=== PATIENT | male | born 1960 | race Caucasian/White ===

== ENCOUNTER 2018-06-19 12:42 | Emergency (ER) | payer SELFPAY ==
[2018-06-19] MEDS ORDERED: PANTOPRAZOLE 40 MG INJ ONE (13:25)
[2018-06-19] MEDS ORDERED: NA CHLORIDE 0.9% 2,000 ML ONE (13:25)
[2018-06-19] MEDS ORDERED: PANTOPRAZOLE INJ 80 MG in NA CHLORIDE 0.9% 250 ML IV ONE (13:45)
[2018-06-19 13:46] LABS: Absolute Lymphocytes (CBC) 1.5 K/uL (0.7-4.9); Absolute Monocytes 0.7 K/uL (0.1-1.3); Absolute Neutrophil 14.4 K/uL (1.8-8.0); Basophils % 0.6 % (0-1.3); Eosinophils % 1.7 % (0-4.4); Hematocrit 27.1 % (39.6-49.0); Lymphocytes % 8.7 % (15.3-44.8); MCV 56.9 fL (80-100); MPV 8.9 fL (7.6-11.3); Monocytes % 4.2 % (3.3-12.3); RBC Red Blood Cell Count 4.77 M/uL (4.33-5.43)
[2018-06-19 13:47] LABS: Protime INR 1.35
--- NOTE | 2018-06-19 13:47 | EDPHYS ---
Physician Documentation [facility] Name: Tre Chi Age: 57 yrs Sex: Male : 1960 Arrival Date: 06/19/2018 Time: 12:47 Bed 7 Private MD: Joamr Perez H ED Physician Jordon Diaz HPI: 06/19 13:26 This 57 yrs old Male presents to ER via Wheelchair with complaints of Bloody parvin Stools, Anemia. 13:26 The patient presents to the emergency department with rectal bleeding, a large amount. parvin Onset: The symptoms/episode began/occurred 3 day(s) ago. Abdominal pain: none is appreciated. Modifying factors: The symptoms are alleviated by remaining still, the symptoms are aggravated by movement. BLACK STOOLS, WEAK AND HYPOTENSIVE. Associated signs and symptoms: Pertinent positives: dizziness at rest, shortness of breath, near-syncope. Severity of symptoms: At their worst the symptoms were moderate in the emergency department the symptoms are unchanged. Historical: - Allergies: 12:57 No Known Allergies; aj1 - Home Meds: 12:57 Clozaril oral oral [Active]; Benicar oral oral [Active]; aj1 - PMHx: 12:57 Hypertension; aj1 - PSHx: 12:57 Cholecystectomy; aj1 - Immunization history:: Flu vaccine is up to date. - Social history:: Smoking status: Patient/guardian denies using tobacco. - Ebola Screening: : Patient denies travel to an Ebola-affected area in the 21 days before illness onset. ROS: 13:26 Eyes: Negative for injury, pain, redness, and discharge, Neck: Negative for injury, parvin pain, and swelling, Cardiovascular: Negative for chest pain, palpitations, and edema, Respiratory: Negative for shortness of breath, cough, wheezing, and pleuritic chest pain, Back: Negative for injury and pain, : Negative for injury, bleeding, discharge, and swelling, MS/Extremity: Negative for injury and deformity, Neuro: Negative for headache, weakness, numbness, tingling, and seizure. 13:26 Constitutional: Positive for malaise. 13:26 ENT: Positive for weak, pale, hypotensive. 13:26 Neck: Negative for 13:26 Cardiovascular: Positive for palpitations. 13:26 Respiratory: Positive for cough, shortness of breath. 13:26 Abdomen/GI: Positive for abdominal distension. 13:26 Skin: Positive for pallor. Exam: 13:26 Constitutional: This is a well developed, well nourished patient who is awake, alert, parvin and in no acute distress. Head/Face: Normocephalic, atraumatic. Neck: Trachea midline, no thyromegaly or masses palpated, and no cervical lymphadenopathy. Supple, full range of motion without nuchal rigidity, or vertebral point tenderness. No Meningismus. Chest/axilla: Normal chest wall appearance and motion. Nontender with no deformity. No lesions are appreciated. Respiratory: Lungs have equal breath sounds bilaterally, clear to auscultation and percussion. No rales, rhonchi or wheezes noted. No increased work of breathing, no retractions or nasal flaring. Back: No spinal tenderness. No costovertebral tenderness. Full range of motion. Male : Normal genitalia with no discharge or lesions. MS/ Extremity: Pulses equal, no cyanosis. Neurovascular intact. Full, normal range of motion. Neuro: Awake and alert, GCS 15, oriented to person, place, time, and situation. Cranial nerves II-XII grossly intact. Motor strength 5/5 in all extremities. Sensory grossly intact. Cerebellar exam normal. Normal gait. Psych: Awake, alert, with orientation to person, place and time. Behavior, mood, and affect are within normal limits. 13:26 Eyes: Conjunctiva: pale. 13:26 Cardiovascular: Rate: tachycardic, Rhythm: regular, Pulses: Pulses are 3+ in . JVD: is not appreciated. 13:26 Abdomen/GI: Inspection: distension, Bowel sounds: normal, Palpation: abdomen is soft and non-tender, Liver: no appreciated palpable abnormalities, Hernia: not appreciated. Vital Signs: 12:57 BP 74 / 45; Pulse 106; Resp 24; Pulse Ox 95% on R/A; Weight 90.72 kg (R); aj1 13:30 BP 77 / 61; Pulse 95; Resp 22; Pulse Ox 94% on 4 lpm NC; ph 14:00 BP 90 / 66; Pulse 94; Resp 20; Pulse Ox 94% on 4 lpm NC; ph 14:45 BP 106 / 75; Pulse 95; Resp 22; Pulse Ox 94% on 4 lpm NC; ph 15:00 BP 111 / 69; Pulse 85; Resp 20; Pulse Ox 94% on 4 lpm NC; ph 15:30 BP 100 / 73; Pulse 95; Resp 22; Temp 97.8; Pulse Ox 95% on 4 lpm NC; ph 15:54 BP 113 / 80; Pulse 97; Resp 24; Pulse Ox 93% on 4 lpm NC; ph 16:30 BP 100 / 66; Pulse 93; Resp 30; Pulse Ox 93% on 4 lpm NC; jl7 17:00 BP 108 / 68; Pulse 106; Resp 32; Pulse Ox 93% on 4 lpm NC; jl7 17:30 BP 103 / 65; Pulse 108; Resp 32; Pulse Ox 90% on 4 lpm NC; jl7 18:35 BP 106 / 69; Pulse 102; Resp 32; Pulse Ox 91% on 4 lpm NC; jl7 19:00 BP 94 / 61; Pulse 112; Resp 30; Pulse Ox 92% on 4 lpm NC; jl7 19:45 BP 95 / 66; Pulse 108; Resp 33; Temp 98.3(O); Pulse Ox 92% on 4 lpm NC; tl2 20:10 BP 97 / 74; Pulse 109; Resp 26; Temp 98.3(O); Pulse Ox 94% on 4 lpm NC; tl2 Procedures: 13:43 Peripheral line: by aseptic technique a peripheral line was placed in the left external parvin jugular vein. 19:03 Performed ng tube to low int suction by parvin haynes. [facility] MDM: 13:[address] [facility] 13:32 Data reviewed: vital signs, nurses notes, lab test result(s), EKG, radiologic studies, [facility] plain films. 06/19 13:26 Order name: Basic Metabolic Panel; Complete Time: 14:[address] [facility] 06/19 13:26 Order name: CBC with Diff; Complete Time: 14:[address] [facility] 06/19 13:26 Order name: Ckmb; Complete Time: 14:[address] [facility] 06/19 13:26 Order name: CPK; Complete Time: 14:[address] [facility] 06/19 13:26 Order name: LFT's; Complete Time: 14:[address] [facility] 06/19 13:26 Order name: Magnesium; Complete Time: 14:[address] [facility] 06/19 13:26 Order name: NT PRO-BNP; Complete Time: 14:[address] [facility] 06/19 13:26 Order name: PT-INR; Complete Time: 14:[address] [facility] 06/19 13:26 Order name: Ptt, Activated; Complete Time: 14:[address] [facility] 06/19 13:26 Order name: Troponin (emerg Dept Use Only); Complete Time: 14:[address] [facility] 06/19 13:26 Order name: Lipase; Complete Time: 14:[address] [facility] 06/19 13:30 Order name: Bb Add On eb 06/19 13:39 Order name: Type and Screen EDMS 06/19 13:39 Order name: Fresh Frozen Plasma EDMS 06/19 13:39 Order name: Packed RBC Leukored -1 EDMS 06/19 14:08 Order name: Manual Differential; Complete Time: 14:57 EDID 06/19 14:08 Order name: Slides for Pathologist Review EDID 06/19 14:17 Order name: ABO/RH no charge; Complete Time: 14:57 EDID 06/19 14:28 Order name: CBC with Automated Diff EDMS 06/19 14:28 Order name: CBC with Automated Diff EDMS 06/19 14:28 Order name: CBC with Automated Diff EDMS 06/19 14:28 Order name: CBC with Automated Diff EDMS 06/19 14:28 Order name: CBC with Automated Diff EDMS 06/19 14:28 Order name: CBC with Automated Diff EDMS 06/19 14:28 Order name: Comprehensive Metabolic Panel EDMS 06/19 14:28 Order name: Comprehensive Metabolic Panel EDMS 06/19 14:28 Order name: Comprehensive Metabolic Panel EDMS 06/19 14:28 Order name: Comprehensive Metabolic Panel EDMS 06/19 14:28 Order name: Comprehensive Metabolic Panel EDMS 06/19 14:28 Order name: Comprehensive Metabolic Panel EDMS 06/19 13:26 Order name: XRAY Chest (1 view); Complete Time: 14:[address] [facility] 06/19 14:28 Order name: Echo with Doppler EDMS 06/19 14:28 Order name: Lipid Profile EDMS 06/19 14:28 Order name: Lipid Profile EDMS 06/19 14:28 Order name: Magnesium EDMS 06/19 14:28 Order name: Magnesium EDMS 06/19 14:28 Order name: Magnesium EDMS 06/19 14:28 Order name: Magnesium EDMS 06/19 14:28 Order name: Magnesium EDMS 06/19 14:28 Order name: Magnesium EDMS 06/19 14:28 Order name: T4 Free [facility] 06/19 14:28 Order name: T4 Free [facility] 06/19 14:28 Order name: Thyroid Stimulating Hormone [facility] 06/19 14:28 Order name: Thyroid Stimulating Hormone [facility] 06/19 14:28 Order name: Blood Culture [facility] 06/19 14:28 Order name: Renal Ultrasound-Complete; Complete Time: 16:02 [facility] 06/19 15:05 Order name: CT Stone Protocol [facility] 06/19 15:41 Order name: Iron Level 06/19 15:41 Order name: Folic Acid,Serum (folate) 06/19 15:41 Order name: B12 06/19 15:57 Order name: CT; Complete Time: 16:02 [facility] 06/19 16:29 Order name: CBC with Automated Diff; Complete Time: 17:18 [facility] 06/19 16:37 Order name: Transferrin Sat/Iron Binding; Complete Time: 17:18 [facility] 06/19 17:14 Order name: Ferritin; Complete Time: 17:18 [facility] 06/19 17:14 Order name: Folic Acid, (Folate); Complete Time: 17:18 [facility] 06/19 17:14 Order name: Vitamin B12 Level; Complete Time: 17:18 [facility] 06/19 19:02 Order name: Abdomen [address] [facility] 06/19 19:47 Order name: RAD [facility] 06/19 20:09 Order name: Urine Dipstick--Ancillary (enter results) [place] 06/19 13:26 Order name: EKG; Complete Time: 13:[address] [facility] 06/19 13:26 Order name: Cardiac monitoring; Complete Time: 14:[address] [facility] 06/19 13:26 Order name: EKG - Nurse/Tech; Complete Time: 14:[address] [facility] 06/19 13:26 Order name: IV Saline Lock; Complete Time: 14:[address] [facility] 06/19 13:26 Order name: Labs collected and sent; Complete Time: 14:[address] [facility] 06/19 13:26 Order name: O2 Per Protocol; Complete Time: 14:[address] [facility] 06/19 13:26 Order name: O2 Sat Monitoring; Complete Time: 14:[address] [facility] 06/19 13:26 Order name: Urine Dipstick-Ancillary (obtain specimen); Complete Time: 19:[address] [facility] 06/19 13:26 Order name: Hartley; Complete Time: 16:[address] [facility] 06/19 13:26 Order name: IV Saline Lock - Large Bore; Complete Time: 13:[address] [facility] 06/19 13:26 Order name: Transfuse; Complete Time: 19:[address] [facility] 06/19 13:32 Order name: Central Line Kit; Complete Time: 13:[address] [facility] 06/19 13:44 Order name: NPO; Complete Time: 13:[address] [facility] 06/19 13:50 Order name: CONS Physician Consult [facility] 06/19 14:28 Order name: CONS Physician Consult [facility] 06/19 14:28 Order name: NPO [facility] 06/19 16:07 Order name: NG Tube: low intermittant suction; Complete Time: 19:[address] [facility] Administered Medications: 13:27 Drug: NS 0.9% 1000 ml Route: IV; Rate: 1 bolus; Site: right antecubital; iw 14:30 Follow up: IV Status: Completed infusion; IV Intake: 1000ml jl7 13:27 Drug: ProTONIX 80 mg Route: IVP; Site: right antecubital; iw 14:00 Follow up: Response: No adverse reaction jl7 13:50 Drug: NS 0.9% 1000 ml Route: IV; Rate: 1 bolus; Site: right antecubital; jl7 15:00 Follow up: IV Status: Completed infusion jl7 13:52 Drug: ProTONIX 8 mg/hr Route: IV; Rate: 25 ml/hr; Site: right antecubital; jl7 14:12 Drug: Vitamin K1 10 mg Route: Sub-Q; Site: abdomen; jl7 15:00 Follow up: Response: No adverse reaction jl7 15:20 Drug: NS 0.9% 1000 ml Route: IV; Rate: 1000 ml; Site: left antecubital; ph 16:20 Follow up: IV Status: Completed infusion jl7 18:10 Drug: Flagyl 500 mg Volume: 100 ml; Route: IVPB; Rate: 200 ml/hr; Infused Over: 30 jl7 mins; Site: left jugular; 18:40 Follow up: Response: No adverse reaction; IV Status: Completed infusion jl7 18:55 Drug: Rocephin - (cefTRIAXone) 1 grams Route: IVPB; Infused Over: 30 mins; Site: left jl7 jugular; 18:57 Follow up: Response: No adverse reaction; IV Status: Completed infusion jl7 19:41 Drug: NS 0.9% 500 ml Route: IV; Rate: bolus; Site: left jugular; iw Disposition: 06/19/18 16:20 Transfer ordered to [facility]. Diagnosis are Other intestinal obstruction - mechanical obs, cecal mass, Anemia, unspecified, Unspecified kidney failure, Hypotension, Elevated white blood cell count. - Reason for transfer: Higher level of care. - Accepting physician is to [facility]. - Condition is Fair. - Problem is new. - Symptoms have improved. Signatures: Dispatcher [employer] EDMS Lou Farris, RN RN aj1 Jordon Diaz MD MD cha Williams, Irene RN RN iw Abena Grubbs RN RN Taylor Lobato RN RN tl2 Hermann Lockett RN RN jl7 Patricia Coronel Corrections: (The following items were deleted from the chart) 14:50 13:47 Hospitalization Ordered by MD [employer] for Inpatient Admission. Preliminary eb diagnosis is Gastrointestinal hemorrhage, unspecified - upper; Hypotension; Weakness. Bed requested for Intensive Care Unit. Status is Inpatient Admission. Condition is Serious. Problem is new. Symptoms have improved. UTI on Admission? No. [facility] 14:56 14:50 06/19/2018 13:47 Hospitalization Ordered by [employer] [employer] for Inpatient eb Admission. Preliminary diagnosis is Gastrointestinal hemorrhage, unspecified - upper; Hypotension; Weakness. Bed requested for Intensive Care Unit. Status is Inpatient Admission. Condition is Serious. Problem is new. Symptoms have improved. UTI on Admission? No. 14:59 14:56 06/19/2018 13:47 Hospitalization Ordered by [employer] for Inpatient parvin Admission. Preliminary diagnosis is Gastrointestinal hemorrhage, unspecified - upper; Hypotension; Weakness. Bed requested for Intensive Care Unit. Status is Inpatient Admission. Condition is Serious. Problem is new. Symptoms have improved. UTI on Admission? No. eb 16:16 14:59 06/19/2018 13:47 Hospitalization Ordered by [employer] for Inpatient parvin Admission. Preliminary diagnosis is Gastrointestinal hemorrhage, unspecified - upper; Hypotension; Weakness; Unspecified kidney failure. Bed requested for Intensive Care Unit. Status is Inpatient Admission. Condition is Serious. Problem is new. Symptoms have improved. UTI on Admission? No. parvin 20:22 16:20 06/19/2018 16:20 Transfer ordered to [facility]. Diagnosis is tl2 Other intestinal obstruction - mechanical obs, cecal mass; Anemia, unspecified; Unspecified kidney failure; Hypotension; Elevated white blood cell count. Reason for transfer: Higher level of care. Accepting physician is to [facility]. Condition is Fair. Problem is new. Symptoms have improved. parvin
--- NOTE | 2018-06-19 13:47 | ER ---
Nurse's Notes [facility] Emergency Department Name: Tre Chi Age: 57 yrs Sex: Male : 1960 Arrival Date: 06/19/2018 Time: 12:47 Bed 7 Private MD: Jomar Perez H Diagnosis: Other intestinal obstruction-mechanical obs, cecal mass;Anemia, unspecified;Unspecified kidney failure;Hypotension;Elevated white blood cell count Presentation: 06/19 12:52 Presenting complaint: Father states: He has a GI bleed, he saw his doctor and they guilherme aj1 blood, they said that his hemoglobin was down to 7. He is suppose to see Dr. Smith once he gets admitted. Patient appears pale, diaphoretic. Reports abdomina pain, dark stools. Transition of care: patient was not received from another setting of care. Onset of symptoms was April 2018. Risk Assessment: Do you want to hurt yourself or someone else? Patient reports no desire to harm self or others. Initial Sepsis Screen: Does the patient meet any 2 criteria? Systolic BP < 90 mmHg. Does the patient have a suspected source of infection? No. Patient's initial sepsis screen is negative. Care prior to arrival: None. 12:52 Method Of Arrival: Wheelchair aj1 12:52 Acuity: BERTA 2 aj1 Triage Assessment: 12:57 General: Appears uncomfortable, Behavior is calm, cooperative, appropriate for age. aj1 Pain: Complains of pain in abdomen. Historical: - Allergies: 12:57 No Known Allergies; aj1 - Home Meds: 12:57 Clozaril oral oral [Active]; Benicar oral oral [Active]; aj1 - PMHx: 12:57 Hypertension; aj1 - PSHx: 12:57 Cholecystectomy; aj1 - Immunization history:: Flu vaccine is up to date. - Social history:: Smoking status: Patient/guardian denies using tobacco. - Ebola Screening: : Patient denies travel to an Ebola-affected area in the 21 days before illness onset. Screenin:00 Abuse screen: Denies threats or abuse. Denies injuries from another. Nutritional jl7 screening: No deficits noted. Tuberculosis screening: No symptoms or risk factors identified. Fall Risk No secondary diagnosis (0 pts). IV access (20 points). Gait- Weak (10 pts.). Total Freitas Fall Scale indicates Low Risk Score (25-44 pts). Fall prevention measures have been instituted. Side Rails Up X 2 Placed close to Nursing Station Frequent Obs/Assesments occuring Family Present and informed to notify staff if they need to leave bedside As available Patient and Family Educated on Fall Prevention Program and strategies. Assessment: 13:00 General: Appears distressed, uncomfortable, Behavior is calm, cooperative, appropriate jl7 for age. Pain: Complains of pain in epigastric area Pain does not radiate. Pain currently is 4 out of 10 on a pain scale. Quality of pain is described as dull. Neuro: Level of Consciousness is awake, alert, obeys commands, Oriented to person, place, time, situation. Cardiovascular: Heart tones present Capillary refill is > 3 seconds in bilateral fingers toes. Respiratory: Airway is patent Respiratory effort is even, labored, Respiratory pattern is symmetrical, tachypnea Breath sounds are clear bilaterally. GI: Abdomen is round distended, Bowel sounds hypoactive in right upper quadrant, left upper quadrant, right lower quadrant and left lower quadrant. : No signs and/or symptoms were reported regarding the genitourinary system. EENT: No signs and/or symptoms were reported regarding the EENT system. Derm: Skin is diaphoretic, Skin is pale, Skin temperature is cold. 14:00 Reassessment: No changes from previously documented assessment. Patient and/or family jl7 updated on plan of care and expected duration. Pain level reassessed. Patient is alert, oriented x 3, equal unlabored respirations, skin warm/dry/pink. 15:00 Reassessment: Patient and/or family updated on plan of care and expected duration. Pain jl7 level reassessed. Patient is alert, oriented x 3, equal unlabored respirations, skin warm/dry/pink. 16:00 Reassessment: Patient and/or family updated on plan of care and expected duration. Pain jl7 level reassessed. Patient is alert, oriented x 3, equal unlabored respirations, skin warm/dry/pink. 17:00 Reassessment: Patient and/or family updated on plan of care and expected duration. Pain jl7 level reassessed. Patient is alert, oriented x 3, equal unlabored respirations, skin warm/dry/pink. 18:00 Reassessment: Patient and/or family updated on plan of care and expected duration. Pain jl7 level reassessed. Patient is alert, oriented x 3, equal unlabored respirations, skin warm/dry/pink. 19:10 General: Appears in no apparent distress. uncomfortable, Behavior is calm, cooperative, tl2 appropriate for age. Pain: Complains of pain in epigastric area Pain does not radiate. Neuro: Level of Consciousness is awake, alert, obeys commands, Oriented to person, place, time, situation. Cardiovascular: Denies chest pain. Respiratory: Airway is patent Respiratory effort is even, labored, Respiratory pattern is symmetrical, tachypnea Breath sounds are clear bilaterally. GI: Abdomen is round distended. GI: Reports bloody stool. : No signs and/or symptoms were reported regarding the genitourinary system. Derm: Skin is diaphoretic, Skin is pale. 19:45 Reassessment: Patient and/or family updated on plan of care and expected duration. Pain tl2 level reassessed. Patient is alert, oriented x 3, equal unlabored respirations, skin warm/dry/pink. See transfusion record for vitals. Awaiting transport for transfer. Vital Signs: 12:57 BP 74 / 45; Pulse 106; Resp 24; Pulse Ox 95% on R/A; Weight 90.72 kg (R); aj1 13:30 BP 77 / 61; Pulse 95; Resp 22; Pulse Ox 94% on 4 lpm NC; ph 14:00 BP 90 / 66; Pulse 94; Resp 20; Pulse Ox 94% on 4 lpm NC; ph 14:45 BP 106 / 75; Pulse 95; Resp 22; Pulse Ox 94% on 4 lpm NC; ph 15:00 BP 111 / 69; Pulse 85; Resp 20; Pulse Ox 94% on 4 lpm NC; ph 15:30 BP 100 / 73; Pulse 95; Resp 22; Temp 97.8; Pulse Ox 95% on 4 lpm NC; ph 15:54 BP 113 / 80; Pulse 97; Resp 24; Pulse Ox 93% on 4 lpm NC; ph 16:30 BP 100 / 66; Pulse 93; Resp 30; Pulse Ox 93% on 4 lpm NC; jl7 17:00 BP 108 / 68; Pulse 106; Resp 32; Pulse Ox 93% on 4 lpm NC; jl7 17:30 BP 103 / 65; Pulse 108; Resp 32; Pulse Ox 90% on 4 lpm NC; jl7 18:35 BP 106 / 69; Pulse 102; Resp 32; Pulse Ox 91% on 4 lpm NC; jl7 19:00 BP 94 / 61; Pulse 112; Resp 30; Pulse Ox 92% on 4 lpm NC; jl7 19:45 BP 95 / 66; Pulse 108; Resp 33; Temp 98.3(O); Pulse Ox 92% on 4 lpm NC; tl2 20:10 BP 97 / 74; Pulse 109; Resp 26; Temp 98.3(O); Pulse Ox 94% on 4 lpm NC; tl2 ED Course: 12:47 Patient arrived in ED. as 12:47 Jomar Perez MD is Private Physician. as 12:55 Triage completed. aj1 12:57 Arm band placed on Patient placed in an exam room. aj1 13:00 Patient has correct armband on for positive identification. Placed in gown. Bed in low jl7 position. Call light in reach. Side rails up X2. monitoring and evaluation advisor on. Pulse ox on. NIBP on. Warm blanket given. 13:05 Hermann Lockett, THIERRY is Primary Nurse. jl7 13:05 Initial lab(s) drawn, by ms, sent to lab. Inserted saline lock: 20 gauge in right jl7 antecubital area, using aseptic technique. Blood collected. 13:10 Jordon Diaz MD is Attending Physician. [facility] 13:10 Inserted saline lock: 20 gauge in left forearm, using aseptic technique. Inserted jl7 saline lock: 18 gauge in left EJ, using aseptic technique. ,using aseptic technique. Inserted by Dr. Diaz. 13:40 EKG done, by farm technician. reviewed by Jordon Diaz MD. at1 13:45 Hartley cath inserted, using sterile technique, 16 Fr., by ms, balloon inflated, to jl7 gravity drainage, urine specimen collected. returned clear yellow urine. Patient tolerated well. 13:46 Maninder Chaves DO is Hospitalizing Provider. [facility] 14:00 X-ray completed. Portable x-ray completed in exam room. Patient tolerated procedure jb2 well. 14:01 XRAY Chest (1 view) In Process Unspecified. EDMS 15:12 Ultrasound completed. Note: us done portable/bedside in er. lc3 15:[address] mw3 15:40 CT completed. Patient tolerated procedure well. Patient moved back from PR. sj 16:[address] [facility]. eb 17:06 connected the doctor from [facility] with ED doctor for patient transfer eb consulation. 17:[address] Smith the surgical farmer diversified crops from [facility] with ED doctor. eb 17:44 administrative approval given by Kaykay Mittal RN channel marketing coordinator. Pt going to [address] A Bed 6A04. report to be called to [phone]. Dr. Koenig has accepted the patient. 19:00 Report given to THIERRY Vazquez. jl7 20:10 Patient transferred, IV remains in place. tl2 20:10 No provider procedures requiring assistance completed. tl2 Administered Medications: 13:27 Drug: NS 0.9% 1000 ml Route: IV; Rate: 1 bolus; Site: right antecubital; iw 14:30 Follow up: IV Status: Completed infusion; IV Intake: 1000ml jl7 13:27 Drug: ProTONIX 80 mg Route: IVP; Site: right antecubital; iw 14:00 Follow up: Response: No adverse reaction jl7 13:50 Drug: NS 0.9% 1000 ml Route: IV; Rate: 1 bolus; Site: right antecubital; jl7 15:00 Follow up: IV Status: Completed infusion jl7 13:52 Drug: ProTONIX 8 mg/hr Route: IV; Rate: 25 ml/hr; Site: right antecubital; jl7 14:12 Drug: Vitamin K1 10 mg Route: Sub-Q; Site: abdomen; jl7 15:00 Follow up: Response: No adverse reaction jl7 15:20 Drug: NS 0.9% 1000 ml Route: IV; Rate: 1000 ml; Site: left antecubital; ph 16:20 Follow up: IV Status: Completed infusion jl7 18:10 Drug: Flagyl 500 mg Volume: 100 ml; Route: IVPB; Rate: 200 ml/hr; Infused Over: 30 jl7 mins; Site: left jugular; 18:40 Follow up: Response: No adverse reaction; IV Status: Completed infusion jl7 18:55 Drug: Rocephin - (cefTRIAXone) 1 grams Route: IVPB; Infused Over: 30 mins; Site: left jl7 jugular; 18:57 Follow up: Response: No adverse reaction; IV Status: Completed infusion jl7 19:41 Drug: NS 0.9% 500 ml Route: IV; Rate: bolus; Site: left jugular; Intake: 14:30 IV: 1000ml; Total: 1000ml. jl7 Outcome: 13:47 Decision to Hospitalize by Provider. parvin 16:20 ER care complete, transfer ordered by . parvin 20:10 Transferred by ground EMS to [facility], Transfer form completed. tl2 20:10 critical 20:10 Discharge instructions given to patient, family, Instructed on the need for transfer. 20:22 Patient left the ED. tl2 Signatures: Dispatcher [employer] EDMS Lou Farris, RN RN aj1 Jordon Diaz MD MD cha Buechter, Yanira Pittman Amelia as Williams, Irene, THIERRY GUADARRAMA iw Toya newton, clinical program consultant EKG Tat1 Abena Grubbs RN RN Yesenia Clark Taylor, RN RN tl2 Hermann Lockett RN RN jl7 Patricia Coronel Michelle mw3 Corrections: (The following items were deleted from the chart) 06/20 05:36 05:33 No provider procedures requiring assistance completed. tl2 tl2
[2018-06-19 14:01] LABS: Albumin 3.4 g/dL (3.4-5.0); Bilirubin Direct 0.2 mg/dL (0-0.2); Bilirubin Total 0.9 mg/dL (0.2-1.0); CKMB Creatine Kinase MB 3.3 ng/mL (0.3-3.6); Magnesium 2.7 mg/dL (1.8-2.4); Potassium 3.9 mmol/L (3.5-5.1); Protein, Total 7.5 g/dL (6.4-8.2)
[2018-06-19] MEDS ORDERED: VITAMIN K (ADULT) 10 MG/ML ONE (14:03)
--- NOTE | 2018-06-19 14:10 | RAD REPORT ---
EXAM DESCRIPTION: RAD - Chest Single View - 06/19/2018 2:03 pm CLINICAL HISTORY: COUGH Chest pain. COMPARISON: No comparisons FINDINGS: Portable technique limits examination quality. The lungs are underinflated but grossly clear. The heart is normal in size. No displaced fractures. IMPRESSION: No acute intrathoracic process suspected.
[2018-06-19] MEDS ORDERED: ACETAMINOPHEN 650MG/RECT SUPP PR PRN (14:18)
[2018-06-19] MEDS ORDERED: LORazepam 2 MG/ML VIAL IV PRN (14:18)
[2018-06-19] MEDS ORDERED: ACETAMINOPHEN 500 MG TAB PO PRN (14:18)
[2018-06-19] MEDS ORDERED: ONDANSETRON 4 MG/2 ML VIAL IV PRN (14:18)
[2018-06-19 14:20] LABS: Anisocytosis 3+; Blood Morphology Comment NOTED (NOT SEEN); Hypochromasia 3+; Platelet Estimate INCR; Platelets, Giant MANY; Polychromasia 3+
[2018-06-19] MEDS ORDERED: NA CHLORIDE 0.9% 500 ML ONE ×2 (14:36→19:39)
--- NOTE | 2018-06-19 14:50 | P.HP ---
Certification for Inpatient Patient admitted to: Inpatient With expected LOS: >2 Midnights Patient will require the following post-hospital care: None Practitioner: I am a practitioner with admitting privileges, knowledge of patient current condition, hospital course, and medical plan of care. Services: Services provided to patient in accordance with Admission requirements found in Title 42 Section 412.3 of the Code of Federal Regulations Patient History Date of Service: 06/19/18 Primary Care Provider: Dr. Tucker([place], [place]) Reason for admission: Fatigue, Melena, Anemia History of Present Illness: 57 yo CM presented to the ER after he was seen by his PCP in [place]. He was having fatigue, melena for the last couple of days. In the Office of his PCP Lab showed a hemoglobin of 7.1, previous Hemoglobin last year was normal as per family. He also had a positive guaiac. Cardiac enzymes were normal. He mentions fatigue over that last couple of days. He has been taking his medication-Benicar HCT for his HTN. His BP was low. He also mentions that he takes Tylenol and Alleve daily. He has Schizophrenia and taking Clozaril. He was sent from the PCP to the GI physician for evaluation. His family decided to bring him in the ER. In the ER he was found to be anemic, hypotensive and with acute renal failure. His hemoglobin was 7.6 with microcytic indices. His Platelet count was 2370. Peripheral smear was sent for analysis. His BUN was 30, Creatinine 3.1 and GFR- 21. BNP was 4007. Cardiac enzymes were in normal range. His CXR was normal. He was has been given IV fluids and will start transfusion with Protonix drip. When I evaluated him, he appeared pale. His BP was 95 sys. He appears stable and in non respiratory distress. Family was at bedside. He reports taking his HTN medication-Benicar HCT this am. He does not drink alcohol or smoke. There is family history of colon and stomach cancer. Family mentions that his hemoglobin last year was normal. He only other medication is Clozaril for Schizophrenia. He is taking Tylenol and Alleve daily. Allergies No Known Allergies Allergy (Unverified 06/19/18 13:31) Home medications list reviewed: Yes - Past Medical/Surgical History Diabetic: No -: HTN -: Schizophrenia -: Cholecystectomy Psychosocial/ Personal History: He is . He has 1 child. He is not working. He is disabled. - Family History Father -: Cancer (Grandfather with Stomach and Colon cancer. ) Mother -: Cancer (Grandmother with Breast cancer) - Social History Smoking Status: Never smoker Alcohol use: No CD- Drugs: No Caffeine use: Yes Place of Residence: Home Review of Systems General: Weakness, Malaise, As per HPI Eyes: Unremarkable ENT: Unremarkable Respiratory: Unremarkable Cardiovascular: Unremarkable Gastrointestinal: Nausea, Melena, As per HPI Genitourinary: Unremarkable Musculoskeletal: Unremarkable Integumentary: Unremarkable Neurological: Weakness, As per HPI Lymphatics: Unremarkable Physical Examination - Physical Exam General: Alert, In no apparent distress, Oriented x3, Cooperative HEENT: Atraumatic, Normocephalic, PERRLA, Other (dry mucous membranes) Neck: Supple, No Thyromegaly Respiratory: Clear to auscultation bilaterally, Normal air movement Cardiovascular: Normal pulses, Regular rate/rhythm Gastrointestinal: Normal bowel sounds, Soft and benign, Non-distended, No masses , No rebound, No guarding, Tenderness (Minimal tenderness to the epigastric region) Musculoskeletal: No erythema, No tenderness, No warmth Integumentary: No erythema, No warmth, No cyanosis, Other (Pale appearing) Neurological: Normal speech, Normal strength at 5/5 x4 extr, Normal tone, Normal affect Lymphatics: No axilla or inguinal lymphadenopathy - Studies Laboratory Data (last 24 hrs) 06/19/18 13:27: PT 16.0 H, INR 1.35, APTT 31.4 06/19/18 13:27: WBC 16.9 H, Hgb 7.6 L*, Hct 27.1 L, Plt Count 2370 H* 06/19/18 13:27: Sodium 139, Potassium 3.9, BUN 30 H, Creatinine 3.10 H, Glucose 175 H, Magnesium 2.7 H, Total Bilirubin 0.9, AST 19, ALT 16, Alkaline Phosphatase 116, Lipase 81 Assessment and Plan - Problems (Diagnosis) (1) GI bleed Current Visit: Yes Status: Acute Plan: Likely Upper GI bleed from NSAIDS. Will provide aggressive IV hydration. Will transfuse 2 units of pRBCs then recheck H/H. Will start Protonix drip. Will start Rocephin IV. Obtain Blood cultures. GI consulted to further address. Will maintain BP above 90 sys. Will check Iron, B12 and Peripheral smear. Patient had positive guaiac at PCP office. Family history of Stomach and Colon cancer. Patient may require further transfusion. He will likely need GI evaluation once stable. Will discuss with GI. Qualifiers: GI bleed type/associated pathology: melena Qualified Code(s): K92.1 - Melena (2) Anemia Current Visit: Yes Status: Acute Plan: Likely from GI bleed. Noted melena. Will continue as above. Aggressive IV fluid hydration and transfusion of pRBCs. Qualifiers: Anemia type: other cause Other causes of anemia: acute posthemorrhagic Qualified Code(s): D62 - Acute posthemorrhagic anemia (3) Acute renal failure Current Visit: Yes Status: Acute Plan: Likely from Hypovolemia-GI Bleed and medication-Benicar HCT. Will hold Benicar HCT. Will consult Nephrology to further address. Will check Renal US. Will continue with aggressive IV fluids and transfusion of pRBCs. (4) Hypotension Current Visit: Yes Status: Acute Plan: Continue with aggressive IV fluids, transfusion of blood. Will monitor closely. Patient last took Benicar HCT this am. Qualifiers: Hypotension type: other hypotension type Qualified Code(s): I95.89 - Other hypotension (5) Elevated platelet count Current Visit: Yes Status: Acute Plan: Will check Peripheral smear. (6) Schizophrenia Current Visit: Yes Status: Chronic Plan: Will obtain and verify home meds. Will need to hold Clozaril due to SE of Hypotension at least until Hypotension has resolved Qualifiers: Schizophrenia type: unspecified Qualified Code(s): F20.9 - Schizophrenia, unspecified (7) HTN (hypertension) Current Visit: Yes Status: Chronic Plan: Will HOLD Benicar HCT. Will continue as above. Will maintain BP above 90 sy. Will check ECHO. Qualifiers: Hypertension type: essential hypertension Qualified Code(s): I10 - Essential (primary) hypertension Discharge Plan: Home Plan to discharge in: Greater than 2 days - Advance Directives Does patient have a Living Will: No Does patient have a Durable POA for Healthcare: No - Code Status/Comfort Care Code Status Assessed: Yes Time Spent Managing Pts Care (In Minutes): 65
[2018-06-19] MEDS ORDERED: NA CHLORIDE 0.9% 1,000 ML IV SCH (15:00)
[2018-06-19] MEDS ORDERED: NA CHLORIDE 0.9% 1,000 ML ONE (15:20)
--- NOTE | 2018-06-19 15:42 | RAD REPORT ---
EXAM DESCRIPTION: US - Renal Ultrasound-Complete - 06/19/2018 3:16 pm CLINICAL HISTORY: Acute renal failure COMPARISON: None FINDINGS: Both kidneys are normal in size, shape and echotexture. The right kidney measures 11.4 x 5.0 x 4.6 cm. No hydronephrosis, focal mass or perinephric fluid. The left kidney measures 13.1 x 5.7 x 4.3 cm. No hydronephrosis, focal mass or perinephric fluid. The urinary bladder is incompletely distended without gross abnormality seen. Mild ascites is noted. IMPRESSION: Unremarkable renal sonogram. Mild ascites.
--- NOTE | 2018-06-19 15:56 | RAD REPORT ---
EXAM DESCRIPTION: CT - Stone Protocol - 06/19/2018 3:42 pm CLINICAL HISTORY: Flank pain. ABD PAIN COMPARISON: No comparisons TECHNIQUE: Axial images were obtained without oral or IV contrast. Lack of contrast limits solid org an and vascular assessment. The [id number] spans the entirety of the system partially obscuring uppermost abdomen and lung bases. Coronal reformatted images were obtained and reviewed. All CT scans are performed using dose optimization technique as appropriate and may include automated exposure control or mA/KV adjustment according to patient size. FINDINGS: Mild linear subsegmental atelectasis is seen in both lung bases posteriorly. Imaged portions of the liver and spleen show no suspicious findings on non-contrast imaging.Cholecyst ectomy clips. The pancreas and adrenal glands are normal. No pathologic lymphadenopathy in the abdome n or pelvis. No urinary tract stones or obstructive uropathy. Small benign renal cysts suspected bilaterally. Multiple dilated small bowel loops are present in the abdomen compatible with mechanical small bowel obstruction. There is irregular soft tissue noted in the region of the cecum/ terminal ileum with sev eral adjacent soft tissue implants/ lymph nodes seen. This may read indicate a mass in the region of the cecum which is resulting in a small bowel obstruction.Colonoscopy followup would be recommended. No significant bony abnormality. IMPRESSION: A moderately severe mechanical small bowel obstruction is present. This may be result of a mass / neoplasia in the region of the cecum where there is noted to be prominent soft tissue withi n the adjacent fat which may represent lymphadenopathy or soft tissue implants. Advise followup colon oscopy assessment. Mild free fluid in the abdomen.
[2018-06-19 16:20] LABS: Absolute Monocytes 0.6 K/uL (0.1-1.3); Absolute Neutrophil 11.2 K/uL (1.8-8.0); Hematocrit 21.9 % (39.6-49.0); Lymphocytes % 7.7 % (15.3-44.8); MCH 16.2 pg (27.0-35.0); MCV 57.9 fL (80-100); MPV 8.5 fL (7.6-11.3); Monocytes % 4.4 % (3.3-12.3); RBC Red Blood Cell Count 3.78 M/uL (4.33-5.43)
[2018-06-19] MEDS ORDERED: CEFTRIAXONE/SWI 1gm 1 GM/10 ML SYR IVP SCH (17:00)
[2018-06-19 17:14] LABS: Ferritin 2.4 ng/mL (26-388); Folic Acid, (Folate) > 20.0 ng/mL (3.1-17.5)
--- NOTE | 2018-06-19 18:07 | EKG ---
Test Date: 2018-06-19 Test Time: 13:35:40 Insecticide Mixer: KIMI MEASUREMENT RESULTS: Intervals: Rate: 95 GA: 172 QRSD: 96 QT: 372 QTc: 467 Wallace: P: 15 GA: 172 QRS: 42 T: -45 INTERPRETIVE STATEMENTS: Normal sinus rhythm Cannot rule out Inferior infarct, age undetermined Abnormal ECG No previous ECG available for comparison Electronically Signed On 06-19-18 18:06:30 CDT by Dalton Hui
[2018-06-19] MEDS ORDERED: LIDOCAINE VISCOUS 2% SOLN 15 ML UDC ONE (18:11)
[2018-06-19] MEDS ORDERED: CEFTRIAXONE/SWI 1gm 1 GM/10 ML SYR ONE (18:11)
[2018-06-19] MEDS ORDERED: METRONIDAZOLE 500mg IVPB 500 MG/100 ML BAG IV ONE (18:11)
[2018-06-19] MEDS ORDERED: NA CHLORIDE 0.9% 250 ML ONE (19:09)
--- NOTE | 2018-06-19 19:46 | RAD REPORT ---
EXAM DESCRIPTION: RAD - Abdomen Single View - 06/19/2018 7:40 pm CLINICAL HISTORY: Enteric tube placement Pain COMPARISON: Stone Protocol dated 06/19/2018; Chest Single View dated 06/19/2018 FINDINGS: The tip of the enteric tube is in the stomach.
[2018-06-19 20:21] LABS: Urine Blood 2+ (NEG); Urine Glucose NEGATIVE (NEG); Urine Protein 2+ (NEG); Urine Specific Gravity >1.030 (1.005-1.030); Urine pH 5.5 (5.0-7.0)
[2018-06-19] MEDS ORDERED: PANTOPRAZOLE INJ 80 MG in NA CHLORIDE 0.9% 250 ML IV SCH (23:45)
--- NOTE | 2018-06-20 00:43 | CON ---
Date of Consultation: 06/19/2018 Chief Complaint/history Of Present Illness: Acute kidney injury, severe, borderline oliguric, associated with renal hypoperfusion, precipitated by acute anemia with GI bleeding and hypotension. The patient was found to have elevated BUN up to 30, creatinine 3.10, glucose 175. Electrolytes as follows; sodium 139, potassium 3.9, chloride 102, CO2 28, calcium 9.3, magnesium 2.7. The patient is admitted to ICU for hypotension. He is started on IV fluids for volume resuscitation. Anemia was evaluated and the patient is to have blood transfusion. Hemoglobin was dropping from 7.6 to 6.1. The patient has leukocytosis[place] [address], platelet count is 2370. The patient has multiple medical problems including history of hypertension. Apparently prior to this admission, he was taking Aleve as well as Benicar. The patient presented to the emergency room after he was seen by his PCP in [place]. He was complaining of fatigue and melena. He developed dark bowel movements over the last several days. Outpatient lab work showed hemoglobin of 7.1 and previous hemoglobin was within normal ranges. The patient was found to have positive stool guaiac. Cardiac enzymes were negative. The patient was complaining of fatigue over the last couple days prior to this admission. Currently, he was taken off Benicar because of hypotension and acute kidney injury. The patient has history of schizophrenia and is taking Clozaril. Review of Systems: Constitutional: The patient is complaining of generalized weakness, fatigue. Eyes: Denies vision changes. Ears, Nose, Mouth, and Throat: Denies sore throat or earache. Respiratory: Has some dyspnea. Cardiovascular: Denies chest pain or syncope. GI: Has melena. Denies hematemesis. : Denies dysuria or hematuria. Musculoskeletal: Complains of generalized weakness. Denies gout. All other systems reviewed and all are negative. Past Medical History: Hypertension, schizophrenia, cholecystectomy. Family History: Grandfather had stomach cancer and colon cancer. Grandmother had breast cancer. Social History: Denies tobacco, alcohol, or illicit drugs. Physical Examination: General: The patient is in mild distress. Vital Signs: Blood pressure systolic is 100. Eyes: Anicteric sclerae. EOMI. Ears, Nose, Mouth, and Throat: Oral mucosa moist. There is some pallor present. Neck: Supple. Lungs: Clear to auscultation bilaterally. Heart: S1, S2. No pericardial friction rub. Abdomen: Soft, obese, nontender. No rebound. No guarding. Extremities: No edema. No clubbing. No cyanosis. Neurological: Moving extremities. Cranial nerves intact. Psychiatric: Alert and oriented x3. Normal affect. Blood Work: Hemoglobin 6.1, WBC 13.2, platelet count is 1701, neutrophils 84.9 , lymphocytes 7.7, monocytes 4.4. Chemistries showed sodium 139, potassium 3.9 , chloride 102, CO2 28, BUN 30, creatinine is 3.10, glucose 175, calcium 9.3, magnesium 2.7. CT scan of the abdomen without contrast showed moderate severe mechanical small bowel obstruction present. This may be a result of mass neoplasia in the region of cecum and there is noted to be prominent soft tissue in the adjacent fat which may represent lymphadenopathy. Small benign renal cyst suspected bilaterally. No urinary tract stone or obstructive uropathy. Renal ultrasound unremarkable, mild ascites present. Impression And Plan: 1. Acute kidney injury, borderline oliguric. Continue IV normal saline for hydration. The patient will have blood transfusion. The patient will require fluid resuscitation and blood products. 2. The patient is evaluated with CT scan of the abdomen and pelvis, although he did not have IV contrast because of acute kidney injury. Renal ultrasound did not show hydronephrosis. There is no evidence of obstructive uropathy, although there is evidence of bowel obstruction and possible mass. The patient is evaluated by [facility]. The patient may require a surgical consultation. 3. Hypertension. Continue IV fluids. 4. Angiotensin receptor ailyn is on hold due to hypotensive episode secondary to hypovolemia with GI bleeding. 5. Acute anemia. Blood transfusion ordered. YULY/KAT Voice ID: [id number] Report ID: [id number]
--- NOTE | 2018-06-20 01:32 | CON ---
Date of Consultation: 06/19/2018 Reason For Consultation: Severe anemia with hemoglobin 7.0 at outside lab and [facility]. History Of Present Illness: The patient is a 57-year-old white male with history of hypertension, sc hizophrenia, laparoscopic cholecystectomy. The patient presented to the hospital after being found t o be pale by his father, who is a physician in [place], [place]. Physician had the patient go to the clinic where his hemoglobin was noted to be 7.0. The patient also had a blood pressure of approximat elsa 70/50 and unable to walk today. Was a little concerned as far along with his paleness. He also reports the patient told him that he was in the grocery store last week and passed out with syncope, however, did not seek medical attention at that time, got up and walked home. The patient denies any melena, hematochezia, hematemesis, coffee-ground emesis, hemoptysis, hematuria, or other blood seen. No blood seen by the patient. The patient denies prior colonoscopy or EGD. He takes aspirin or ib uprofen only occasionally. No regular NSAIDs. Of note, at the clinic in [place], his stool was hem e positive as per his father. Past Medical History: Significant for hypertension, schizophrenia, laparoscopic cholecystectomy. Social History: , 1 child. No tobacco. No alcohol. 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 Family History: Father has coronary artery disease, status post myocardial infarction in 1998, back surgery. Father had a prostate cancer, status post radical prostatectomy. Mother is alive, with denita ycythemia vera and atrial fibrillation, hypertension, and hypothyroidism. He also has a paternal gra ndfather with colon cancer x2, and he also has a paternal great-grandfather with stomach cancer. Review of Systems: The patient has syncope; weakness; fatigue; paleness; hypotension, blood pressure is 70/50. Unable t o walk due to weakness today. He denies any melena, hematochezia, hematemesis, coffee-ground emesis, hematuria, hemoptysis. He also denies any other type of bleeding. He has not seen any blood, he re ports. He denies prior colonoscopy or EGD. He denies any fevers, chills, night sweats, heat or cold intolerance, muscle aches, joint aches, backaches, fevers, chills, night sweats, chest pain, short o f breath, seizure, syncope, depression, anxiety. Physical Examination: Vital Signs: The patient is afebrile. Vital signs stable in Emergency Room. He is given IV fluids here. General: He is an obese male, lying in bed, in no acute distress, though somewhat tired and fatigued . HEENT: Remarkable for paleness of his face. Conjunctivae were slightly pale. The pupils equal, rou nd, and reactive to light. Extraocular movements intact. Oropharynx is clear. Neck: Supple. No masses. Respirations: Clear to auscultation bilaterally. Cardiac: Regular rate and rhythm. No gallops or rubs. Gastrointestinal: Positive bowel sounds. Soft, nontender, nondistended. No hepatosplenomegaly. Extremities: No clubbing, cyanosis, or edema. 2+ pulses. Neuro: Alert and orient x3. Grossly nonfocal. 5/5 motor strength. Sensation intact to light touch . Data: Outside hospital the patient had a hemoglobin of 7.0. He had a hemoglobin initially of 7.6, n ow down to 6.1; white count initially 16.9, down to 13.2; hematocrit 21.9; MCV of 57.9; platelet coun t of 1701, polys of 85%; lymphocytes 8%; monocytes 4%; eosinophils 2%' basophils 1%. The patient has a PT of 16.0, INR of 1.4, PTT of 31.4. The patient has a sodium 139, potassium 3.9, chloride 102, b icarb 28, BUN of 30, creatinine of 3.1, glucose 175, calcium 9.3, magnesium 2.7, iron of 12.0, TIBC o f 382, transferrin of 273, iron saturation of 3.1%, ferritin low at 2.4. Total bilirubin 0.9, direct bilirubin 0.2, AST of 19, ALT of 16, alkaline phosphatase 116. CK-MB of 3.3, troponin of 0.03. B-t ype natriuretic peptide of 4007, total protein of 5.7, albumin 3.4, lipase of 81, and vitamin B12 of 722, normal folate of greater than 20. Impression: 1.Severe anemia. Hemoglobin of 7, now down to 6.1 with hypotension. Blood pressure is 70/50. Init ial evaluation in the clinic in [place] with heme-positive stool, only occasional NSAIDs. No melena , hematochezia, hematemesis, coffee-grounds emesis, hematuria, or other blood seen by the patient. Vlad cazares has had no prior colonoscopy, EGDs. He is noted to be seriously pale by father with his hypotensio n today with syncope last week. Need evaluation with EGD, colonoscopy, resuscitation immediately wit h IV fluids and packed RBCs. 2.Iron deficiency anemia, hemoglobin of 6.1, MCV of 57.9, iron saturation 3.1%, ferritin of 2.4. We will evaluate with EGD colonoscopy and other modalities as needed to assess this severe iron-deficie ncy anemia. 3.Congestive heart failure. B-type natriuretic peptide of 4007 and the Cardiology consulted. 4.Acute renal failure with creatinine of 3.1. Renal has been consulted. We will need to continue f ollowing the patient and treat for his new onset of renal failure that may be acute on chronic with s evere dehydration possibly or other causes leading to this including maybe neoplastic process. 5.Thrombocytosis may reactionary from long chronic bleeding and/or cancer, neoplastic process, or ot her. Recommendation: 1.Continue resuscitation with IV fluids and packed RBCs. 2.Serial H and H and transfuse p.r.n. 3.EGD urgently. 4.PPI therapy with IV drip. 5.Colonoscopy soon. 6.Agree with nephrology consultation for renal failure. 7.Cardiology consultation includes congestive heart failure with B-type nitrate peptide of 4007. 8.Consider psych consult for schizophrenia. Await CT of abdomen and pelvis ordered by the ER staff. Addendum: CT stone protocol revealed moderately severe mechanical small bowel obstruction present ma ybe result of mass in the region of the cecum. There was noted to be prominent soft tissue within th e adjacent fat, may represent lymphadenopathies soft tissue implants. Mild free fluid in the abdomen as well. Of note, the ER physician and surgeon director money decided to transfer the patient. With his m echanical bowel obstruction, it looks like advanced neoplastic process, possibly a cecal cancer. It should explain his severe iron deficiency anemia. The patient is to be transferr ed to tertiary center. KORIN Voice ID: [id number] Report ID: [id number]
--- NOTE | 2018-06-20 10:38 | ECHO ---
HEIGHT: ft in WEIGHT: 200 lb 0 oz DATE OF STUDY: 06/19/[address]: Maninder Chaves DO 2-DIMENSIONAL: YES M.MODE: YES DOPPLER: YES COLOR FLOW: YES TDS: NO PORTABLE: NO DEFINITY: NO BUBBLE STUDY: NO DIAGNOSIS: HYPERTENSION CARDIAC HISTORY: CATHERIZATION: NO SURGERY: NO PROSTHETIC VALVE: NO PACEMAKER: NO MEASUREMENTS (cm) DIASTOLIC (NORMALS) SYSTOLIC (NORMALS) IVSd 0.9 (0.6-1.2) LA Diam 3.1 (1.9-4.0) LVEF 76% LVIDd 4.8 (3.5-5.7) LVIDs 2.7 (2.0-3.5) %FS 45% LVPWd 1.2 (0.6-1.2) Ao Diam 3.4 (2.0-3.7) 2 DIMENSIONAL ASSESSMENT: RIGHT ATRIUM: NORMAL LEFT ATRIUM: NORMAL RIGHT VENTRICLE: NORMAL LEFT VENTRICLE: NORMAL TRICUSPID VALVE: NORMAL MITRAL VALVE: NORMAL PULMONIC VALVE: NORMAL AORTIC VALVE: SCLEROSIS PERICARDIAL EFFUSION: NONE AORTIC ROOT: NORMAL LEFT VENTRICULAR WALL MOTION: NORMAL DOPPLER/COLOR FLOW: MILD TRICUSPID REGURGITATION. MILD PULMONARY HYPERTENSION. ESTIMATED RIGHT VENTRICULAR SYSTOLIC PRESSURE 45mmHg. NO AORTIC STENOSIS OR AORTIC REGURGITATION. COMMENTS: NORMAL LEFT VENTRICULAR EJECTION FRACTION. AORTIC SCLEROSIS WITH NO AORTIC STENOSIS OR AORTIC REGURGITATION. MILD TRICUSPID REGURGITATION. MILD PULMONARY HYPERTENSION. TECHNOLOGIST: Aníbal MADRIGAL
== END 2018-06-19 20:22 | disposition short-term general hospital (02) | DRG 378 ==
LOC: ER 12:42 → ERHOLD 13:48 → UNDOADMIN 13:48 → 3RD-ICU 16:05 → ERHOLD 16:05 → 3RD-ICU 18:00 → ERHOLD 18:00 → UNDODISIN 20:22
PROC: 30233K1 Transfusion of Nonautologous Frozen Plasma into Peripheral Vein, Percutaneous Approach (ICD-10-PCS; principal; 2018-06-19)
PROC: 30233N1 Transfusion of Nonautologous Red Blood Cells into Peripheral Vein, Percutaneous Approach (ICD-10-PCS; 2018-06-19)
DX: K92.1 Melena (principal); N17.9 Acute kidney failure, unspecified; D62 Acute posthemorrhagic anemia; K56.609 Unspecified intestinal obstruction, unspecified as to partial versus complete obstruction; C18.0 Malignant neoplasm of cecum; F20.9 Schizophrenia, unspecified; I95.9 Hypotension, unspecified; I50.9 Heart failure, unspecified; D47.3 Essential (hemorrhagic) thrombocythemia; D72.829 Elevated white blood cell count, unspecified; Z80.0 Family history of malignant neoplasm of digestive organs; T39.395A Adverse effect of other nonsteroidal anti-inflammatory drugs [NSAID], initial encounter; I11.0 Hypertensive heart disease with heart failure
CPT/HCPCS: 36415; 51702; 71045; 74018; 74176; 76377; 76770; 80048; 80076; 81003; 82550; 82553; 82607; 82728; 82746; 83540; 83690; 83735; 83880; 84466; 84484; 85025; 85610; 85730; 86850; 86900; 86901; 87040; 93005; 93306; 96372; 99285; C9113; J0696; J3430; J7030; P9016; P9059